=== PATIENT | female | born 2000 | race Caucasian/White ===

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

== ENCOUNTER → 2021-03-23 12:25 | Outpatient (BNVA) | payer MEDICAID, SELFPAY | PROVIDERS: PCP Nurse Practitioner Family; Visit Provider Nurse Practitioner Family | DX: R10.84 Generalized abdominal pain (principal) | CPT/HCPCS: 74018; 81025 ==

== ENCOUNTER 2021-03-28 06:45 | Outpatient (CLI) | payer MEDICAID, SELFPAY ==
--- NOTE | 2021-03-28 07:15 | US_ITS ---
WS: [id number] Complete ABDOMINAL ULTRASOUND HISTORY: R10.84 - Generalized abdominal pain, palpable area near the umbilicus. COMPARISON: None available. Liver: 13.7 cm in length. Liver is normal size and echogenicity with no mass or intrahepatic dilatati on. Gallbladder: Normally distended with no gallstones, wall thickening or pericholecystic fluid. Gallbladder wall thickness: 0.2 cm. Pancreas: Poorly visualized. Head and tail are not well seen. Body is normal. CBD: 0.4 cm. Right kidney: 9.0 cm x 4.9 cm x 4.9 cm. No mass, cortical thickening or hydronephrosis. Left kidney: 9.9 cm x 5.5 cm x 5.9 cm. No mass, cortical thickening or hydronephrosis. Spleen: Normal size and echogenicity. Abdominal aorta and IVC are within normal limits. No ascites. No abnormality near the umbilicus. US/US abdomen complete* [id number] IMPRESSION: Normal complete abdomen ultrasound.
== END 2021-03-28 06:46 | disposition home or self-care (01) ==
PROVIDERS: PCP Nurse Practitioner Family; Visit Provider Nurse Practitioner Family
DX: R10.84 Generalized abdominal pain (principal)
CPT/HCPCS: 76700

== ENCOUNTER → 2021-12-02 11:24 | Outpatient (BNVA) | payer MEDICAID, SELFPAY | PROVIDERS: PCP Nurse Practitioner Family; Visit Provider Nurse Practitioner Family | DX: R19.7 Diarrhea, unspecified (principal); R21 Rash and other nonspecific skin eruption; G35 Multiple sclerosis | CPT/HCPCS: 80053; 84439; 84443; 85025; 86140 ==

== ENCOUNTER → 2022-02-09 09:51 | Outpatient (BNVA) | payer MEDICAID, SELFPAY | PROVIDERS: PCP Nurse Practitioner Family; Visit Provider Psychiatry & Neurology Neurology | DX: G37.9 Demyelinating disease of central nervous system, unspecified (principal) | CPT/HCPCS: 82306; 85007; 85027; 85651; 86038; 86711 ==

== ENCOUNTER → 2022-02-22 10:34 | Outpatient (BNVA) | payer MEDICAID, SELFPAY | PROVIDERS: Visit Provider Psychiatry & Neurology Neurology | DX: G35 Multiple sclerosis (principal) | CPT/HCPCS: 86787 ==

== ENCOUNTER → 2022-05-21 09:23 | Outpatient (BNVA) | payer MEDICAID, SELFPAY | PROVIDERS: Visit Provider Nurse Practitioner | DX: G35 Multiple sclerosis (principal) | CPT/HCPCS: 82784; 86704; 86706; 87340 ==

== ENCOUNTER → 2022-12-06 11:19 | Outpatient (BNVA) | payer MEDICAID, SELFPAY | PROVIDERS: PCP Nurse Practitioner; Visit Provider Psychiatry & Neurology Neurology | DX: G35 Multiple sclerosis (principal) | CPT/HCPCS: 81003; 87086 ==

== ENCOUNTER → 2022-12-09 09:14 | Outpatient (BNVA) | payer MEDICAID, SELFPAY | PROVIDERS: PCP Nurse Practitioner; Visit Provider Psychiatry & Neurology Neurology | DX: E55.9 Vitamin D deficiency, unspecified (principal); M79.603 Pain in arm, unspecified; G35 Multiple sclerosis; R53.83 Other fatigue | CPT/HCPCS: 82306; 82550; 84439; 84443; 85007; 85027; 85651 ==

== ENCOUNTER 2023-01-27 08:01 | Outpatient (CLI) | payer MEDICAID, SELFPAY ==
--- NOTE | 2023-01-27 08:09 | MR_ITS ---
WS: [id number] MRI CERVICAL SPINE with and without contrast. HISTORY: RELAPSING REMITTING MULTIPLE SCLEROSIS COMPARISON: 03/04/2020 Technique: Multiplanar, multisequence noncontrast imaging of the cervical spine. MultiHance 20 mL pos t contrast. Mild straightening normal cervical lordosis. Minimal areas of smudgy-like increased T2 signal in the cervical cord at the C3-4 and C7 levels. This may be artifact. Not definitely seen on the prior study and these areas do not enhance. No brainstem lesions. No cord atrophy or enlargement. Craniocervical junction, C1 and C2 relationship, odontoid process and soft tissues are normal. C2-C3: Normal. C3-C4: Disc bulging and small RIGHT foraminal osteophyte. C4-C5: Mild disc bulging and mild foraminal narrowing. C5-C6: Mild disc bulging and very minimal RIGHT foraminal narrowing. C6-C7: Normal. C7-T1: Normal. Postcontrast images are negative for enhancement. No evidence for discitis or osteomyelitis or active areas of demyelination. MR/MR cervical spine wo/w [id number] IMPRESSION: 1. No areas of active demyelination throughout the cervical cord. No atrophy o r enlargement. 2. There are a few very small smudgy like areas of minimal increased T2 at C3- 4 and C7. These were not present on the prior study. Very early subtle changes of demyelination versus artifact. No active demyelination.
--- NOTE | 2023-01-27 08:09 | MR_ITS ---
WS: [id number] MRI THORACIC SPINE with and without contrast. HISTORY: RELAPSING-REMITTING MULTIPLE SCLEROSIS COMPARISON: 03/04/2020 TECHNIQUE: Multiplanar sequences are performed in sagittal and axial planes. Post contrast imaging, M ultiHance 20 mL IV. Normal thoracic alignment. Thoracic cord is normal size. No atrophy or enlargement. No signal abnorma lity. No enhancement or demyelinating lesions. Conus tapers normally and ends near L1. No disc protru sions, central or foraminal stenosis. Mild facet joint arthritis begins in the mid to lower thoracic spine. Beginning at T9-10 increasing facet joint arthritis and foraminal narrowing. Mild foraminal na rrowing at T10-11. No paravertebral soft tissue abnormalities. MR/MR thoracic spine wo/w [id number] IMPRESSION: 1. No areas of active demyelination or remote demyelinating lesions in the tho racic cord. 2. 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
[2023-01-27] MEDS: gadobenate dimeglumine 20 mL vial IV (09:15)
== END 2023-01-27 08:02 | disposition home or self-care (01) ==
LOC: RAD 08:03
PROVIDERS: PCP Nurse Practitioner; Visit Provider Psychiatry & Neurology Neurology
DX: G35 Multiple sclerosis (principal); M47.814 Spondylosis without myelopathy or radiculopathy, thoracic region
CPT/HCPCS: 72156; 72157; A9577

== ENCOUNTER → 2023-11-07 09:27 | Outpatient (BNVA) | payer OTHER, SELFPAY | PROVIDERS: PCP Nurse Practitioner Family; Visit Provider Nurse Practitioner Family | DX: G35 Multiple sclerosis (principal); R51.9 Headache, unspecified; E66.9 Obesity, unspecified; Z79.899 Other long term (current) drug therapy; D64.9 Anemia, unspecified; Z13.6 Encounter for screening for cardiovascular disorders | CPT/HCPCS: 80053; 80061; 81003; 82306; 82550; 83036; 84439; 84443; 85025; 85651; 87077; 87086; 87184 ==

== ENCOUNTER 2023-11-08 08:31 | Outpatient (CLI) | payer OTHER, SELFPAY ==
--- NOTE | 2023-11-08 08:30 | FL_ITS ---
WS: [id number] LUMBAR PUNCTURE CLINICAL INFORMATION: G35 - Multiple sclerosis COMPARISON: None. TECHNIQUE: Informed consent: The procedure and its potential risk and complications were discussed with the rogelio ent. Verbal and written consent was obtained. Timeout: A timeout was performed to confirm correct patient, procedure, and site. Patient was prepped and draped in the usual sterile fashion. Lidocaine 1% was used for local anesthes ia. Utilizing fluoroscopic guidance, a 5.0 inch 22-gauge spinal needle was advanced into the subarach noid space at L3-L4 via LEFT oblique sublaminar approach. Free flow of clear CSF was obtained. 10 cc of CSF was collected and sent the lab for further analysis. Patient remained in the radiology suite 1 hour supine post procedure Opening pressure 25, closing pressure 18 cm H2o FLUOROSCOPIC TIME: 1min [id number] # of spot films: 1 FL/FL guided lumbarpunc dx* [id number] IMPRESSION: Fluoroscopically guided lumbar puncture. No immediate complications
[2023-11-08 11:24] LABS: Appearance CSF CLEAR (CLEAR); Color CSF COLORLESS (COLORLESS); PATH Referral YES; Pathology Referral Yes
[2023-11-08 11:26] LABS: Polynuclear Cells ,CSF # 0.001 10^3/uL (0-10); Red Blood Cell CSF 0 10^3/uL (0-0)
[2023-11-08 11:34] LABS: CSF Mononuclear # 0.005 10^3/uL (50-90); Mononuclear WBC CSF % 83 % (50-90); Polynuclear WBC CSF % 17 % (0-10); White Blood Cell CSF 6 /uL (0-5)
[2023-11-08 11:49] LABS: Glucose CSF 62 mg/dL (40-70); Total Protein CSF 25 mg/dL (15-45)
[2023-11-10 16:44] LABS: West Nile Virus AB (IGG) <1.30 index; West Nile Virus AB (IGM) <0.90 index
[2023-11-14 23:55] LABS: Angiotensin Convert Enzy CSF 9 U/L (<=15)
[2023-11-16 02:05] LABS: VDRL on CSF NON-REACTIVE
[2023-11-21 17:14] LABS: Oligoclonal Bands IGG, CSF PRESENT (ABSENT)
[2023-11-24 17:26] LABS: Myelin Oligodendrocyte CBA CSF NEGATIVE (NEGATIVE)
== END 2023-11-08 08:32 | disposition home or self-care (01) ==
LOC: RAD 08:31
PROVIDERS: PCP Nurse Practitioner Family; Visit Provider Psychiatry & Neurology Neurology
DX: G35 Multiple sclerosis (principal); R90.89 Other abnormal findings on diagnostic imaging of central nervous system; H53.9 Unspecified visual disturbance; R51.9 Headache, unspecified
CPT/HCPCS: 62328; 80503; 82040; 82042; 82164; 82784; 82945; 83516; 83916; 84157; 86255; 86592; 86788; 86789; 87015; 87070; 87075; 87116; 87205; 87206; 87327; 87801; 89050

== ENCOUNTER → 2024-04-04 14:10 | Outpatient (BNVA) | payer OTHER, SELFPAY | PROVIDERS: PCP Nurse Practitioner Family; Visit Provider Nurse Practitioner Family | DX: Z79.899 Other long term (current) drug therapy (principal); G35 Multiple sclerosis | CPT/HCPCS: 81003 ==

== ENCOUNTER 2024-08-09 08:03 | Outpatient (CLI) | payer OTHER, SELFPAY ==
--- NOTE | 2024-08-09 08:14 | US_ITS ---
WS: [id number] ULTRASOUND BREAST LEFT TECHNIQUE: Ultrasound left breast focused area of concern. CLINICAL INFORMATION: LEFT BREAST TENDERNESS AND ITCHING OF THE SKIN COMPARISON: None. FINDINGS: Ultrasound subareolar LEFT breast. Incidental ductal ectasia. No cystic or solid lesions. No findings in the area of concern to target for biopsy. No suspicious findings. US/US breast LT limited* [id number] IMPRESSION: BI-RADS 2 benign Recommend annual screening mammography age 41
== END 2024-08-09 08:04 | disposition home or self-care (01) ==
LOC: RAD 08:05
PROVIDERS: PCP Nurse Practitioner Family; Visit Provider Nurse Practitioner Family
DX: N64.4 Mastodynia (principal); N60.42 Mammary duct ectasia of left breast
CPT/HCPCS: 76642

== ENCOUNTER → 2024-08-14 09:54 | Outpatient (BNVA) | payer OTHER, SELFPAY | PROVIDERS: PCP Nurse Practitioner Family; Visit Provider Nurse Practitioner Family | DX: J02.9 Acute pharyngitis, unspecified (principal) | CPT/HCPCS: 87880 ==